=== PATIENT | male | born 2000 | race Caucasian/White ===

== ENCOUNTER 2024-06-01 20:50 | Emergency (ER) | payer OTHER, SELFPAY ==
[2024-06-01 20:52] VITALS: BP 125/78; PULSE 108; RESP 16; TEMP 36.6; O2SAT 98
[2024-06-01 22:58] VITALS: BP 125/76; PULSE 86; RESP 16; O2SAT 98
[2024-06-01] MEDS: SODIUM CHLORIDE 0.9% IV 1,000 ML 999 ML IV CONT (23:05)
--- NOTE | 2024-06-01 23:08 | ED_ITS ---
HPI - General Adult General Chief complaint: Nausea/Vomiting/Diarrhea Stated complaint: super dehydraed Time Seen by Provider: 06/01/24 22:48 History of Present Illness HPI narrative: Patient is a 23-year-old male who presents to the emergency department this evening complaining of nausea/vomiting/diarrhea which started this morning at 4:00 a.m.. Patient states that he felt warm and felt as though he was feverish but did not have a thermometer to check his fever. Denies any sick contacts at home or anyone with similar symptoms. Denies any abdominal pain, melena or hematochezia. Patient denies any chest pain, shortness of breath, cough or any additional URI symptoms. Denies any dysuria or hematuria. Denies any additional symptoms or concerns at this time. Related Data Allergies Allergy/AdvReac Type Severity Reaction Status Date / Time No Known Allergies Allergy Mild Unverified 10/31/08 00:34 Review of Systems 2 Review of Systems: All systems are reviewed and are negative unless stated otherwise in the HPI. Exam 2 Narrative: General: Alert, awake, afebrile, in no acute distress. HEENT: PERRL, no rhinorrhea, no post nasal drip, oropharynx clear. Neck: Trachea midline, no JVD, no lymphadenopathy. Cardiovascular: Regular rate and rhythm, no murmurs, rubs or gallops, no peripheral edema. Respiratory: Clear to auscultation bilaterally, no tachypnea, no wheezing, no rhonchi, no rubs, no respiratory distress. Abdomen: Soft, nontender, nondistended, no rebound, no guarding, no peritoneal signs. Musculoskeletal: No joint swelling or deformity, normal muscle tone. Skin: No rashes or petechia, no signs of infection. Psychiatric: Alert and oriented, normal behavior and judgment for situation. Neurological: Alert and oriented to person, place, and time. Follows all commands. No focal deficits, speech is clear and fluent. Course Vital Signs Vital signs: Vital Signs Temperature 97.9 F 06/01/24 20:52 Pulse Rate 108 H 06/01/24 20:52 Respiratory Rate 16 06/01/24 20:52 Blood Pressure 125/78 06/01/24 20:52 Pulse Oximetry 98 06/01/24 20:52 Oxygen Delivery Room Air 06/01/24 20:52 Temperature 97.9 F 06/01/24 20:52 Pulse Rate 86 06/01/24 22:58 Respiratory Rate 16 06/01/24 22:58 Blood Pressure 125/76 06/01/24 22:58 Pulse Oximetry 98 06/01/24 22:58 Oxygen Delivery Room Air 06/01/24 20:52 Medical Decision Making MDM Narrative Medical decision making narrative: The patient was evaluated by myself in the emergency department. History is obtained from patient who is an independent historian and physical exam was performed. External medical records were reviewed at this time. IV was established and pertinent tests were ordered. Patient was administered 1 L IV fluid bolus with normal saline and 4 mg of IV Zofran. Laboratory results obtained revealing no acute process. Differential diagnosis considerations include gastroenteritis, acute viral syndrome, dehydration, electrolyte derangements. Comorbidities impacting this visit include none. I have evaluated and discussed social determinants of health with the patient that could potentially impact subsequent diagnosis and treatment plans. On repeat assessment of the patient, reevaluation revealed that the patient is doing well and is in no acute distress. Patient symptoms have improved since he arrived to our emergency department. Repeat vital signs were all reviewed and noted to be stable. Differential diagnosis and treatment plan were discussed with the patient at bedside. Patient agrees with discussion and after shared medical decision making agrees with discharge. All questions were answered to the patient's satisfaction. Patient will follow up with his PCP in 3-5 days. Patient was provided with strict return precautions and instructed to return to the emergency department if any new or worsening symptoms develop. The patient was discharged in stable condition. Vital Signs Vital Signs: Vital Signs Temperature 97.9 F 06/01/24 20:52 Pulse Rate 108 H 06/01/24 20:52 Respiratory Rate 16 06/01/24 20:52 Blood Pressure 125/78 06/01/24 20:52 Pulse Oximetry 98 06/01/24 20:52 Oxygen Delivery Room Air 06/01/24 20:52 Temperature 97.9 F 06/01/24 20:52 Pulse Rate 86 06/01/24 22:58 Respiratory Rate 16 06/01/24 22:58 Blood Pressure 125/76 06/01/24 22:58 Pulse Oximetry 98 06/01/24 22:58 Oxygen Delivery Room Air 06/01/24 20:52 Lab Data 06/01/24 23:01 12/11/24 23:01 Labs: Lab Results 06/01/24 Range/Units 23:01 WBC 8.1 (4.5-10.0) K/mm3 RBC 5.30 (4.6-6.20) M/mm3 Hgb 17.6 (14.0-18.0) g/dL Hct 47.0 (42.0-52.0) % MCV 88.7 (80-100) fl MCH 33.2 (26-34) pg MCHC 37.4 H (32-36) g/dl RDW 13.0 (11.5-14.5) % Plt Count 213 (150-375) k/mm3 MPV 8.9 (7.4-10.4) fl Immature Gran % (Auto) 0.4 (0-0.5) % Neut % (Auto) 83.2 H (45.5-73.1) % Lymph % (Auto) 9.4 L (18.3-44.2) % [place] % (Auto) 6.8 (2.6-8.5) % Eos % (Auto) 0.0 (0-4.4) % Baso % (Auto) 0.2 (0.2-1.2) % Lymph # (Auto) 0.76 L (0.9-3.2) K/mm3 [place] # (Auto) 0.6 (0.1-0.6) K/mm3 Eos # (Auto) 0.0 (0-0.3) K/mm3 Baso # (Auto) 0.0 (0.0-0.1) K/mm3 Abs Immat Gran (auto) 0.03 (0.00-0.031) K/mm3 Absolute Neuts (auto) 6.8 H (1.3-6.7) K/mm3 Absolute Nucleated RBC 0.000 (0.0-0.012) K/mm3 Nucleated RBC % 0.0 (0.0-0.2) % Sodium 136 L (137-145) mmol/L Potassium 3.6 (3.4-5.0) mmol/L Chloride 102 (98-107) mmol/L Carbon Dioxide 30 (22-30) mmol/L Anion Gap 4 (4-12) mmol/L BUN 12 (9-20) mg/dL Creatinine 0.90 (0.7-1.3) mg/dL Estim Creat Clear Calc 107 ml/min Estimated GFR > 60 (59 - ) Glucose 106 (65-110) mg/dL Calcium 9.4 (8.4-10.2) mg/dL Magnesium 1.9 (1.6-2.3) mg/dL Total Bilirubin 1.7 H (0.2-1.3) mg/dL AST 23 (17-59) U/L ALT 36 (6-50) U/L Alkaline Phosphatase 41 (38-126) U/L Total Protein 7.0 (6.3-8.2) g/dL Albumin 4.7 (3.5-5.1) g/dL Lipase 22 L (23-300) U/L Influenza A (RT-PCR) Negative (Negative) Influenza B (RT-PCR) Negative (Negative) SARS-CoV-2 RNA (RT-PCR) Negative (Negative) Discharge Plan Discharge Clinical Impression: Gastroenteritis Patient Disposition: Home, Self-Care Condition: Improved Instructions: Antibiotic Form, Gastroenteritis (ED) Additional Instructions: Please follow-up with your family doctor within the next 3-5 days. Return to the ED if any new or worsening symptoms develop. Continue oral hydration by drinking lots of fluids until the diarrhea resolves. Patient Language: Romanian Follow-up/Referrals: UNKNOWN,DOCTOR [Non-Staff] - 1 Week Time of Disposition: 00:06
[2024-06-01] MEDS: ONDANSETRON INJ 4 MG/2 ML VIAL IV PUSH (23:19)
[2024-06-01 23:20] LABS: Alanine Aminotransferase 36 U/L (6-50); Albumin Level 4.7 g/dL (3.5-5.1); Alkaline Phosphatase 41 U/L (38-126); Anion Gap 4 mmol/L (4-12); Aspartate Amino Transferase 23 U/L (17-59); Bilirubin,Total 1.7 mg/dL (0.2-1.3); Blood Urea Nitrogen 12 mg/dL (9-20); Calcium 9.4 mg/dL (8.4-10.2); Carbon Dioxide 30 mmol/L (22-30); Chloride 102 mmol/L (98-107); Estimated CRCL calculation 107 ml/min; Estimated Glomerular Filt Rate > 60; Glucose 106 mg/dL (65-110); Lipase 22 U/L (23-300); Magnesium 1.9 mg/dL (1.6-2.3); Potassium 3.6 mmol/L (3.4-5.0); Sodium 136 mmol/L (137-145)
[2024-06-01 23:23] LABS: Basophils Percent Auto 0.2 % (0.2-1.2); Hemoglobin 17.6 g/dL (14.0-18.0); Immature Granulocyte Absolute 0.03 K/mm3 (0.00-0.031); Immature Granulocyte Percent A 0.4 % (0-0.5); Lymphocytes Absolute Auto 0.76 K/mm3 (0.9-3.2); Lymphocytes Percent Auto 9.4 % (18.3-44.2); Mean Corpuscular HGB Conc 37.4 g/dl (32-36); Mean Corpuscular Hemoglobin 33.2 pg (26-34); Mean Corpuscular Volume 88.7 fl (80-100); Mean Platelet Volume 8.9 fl (7.4-10.4); Monocytes Absolute Auto 0.6 K/mm3 (0.1-0.6); Monocytes Percent Auto 6.8 % (2.6-8.5); Neutrophils Absolute Auto 6.8 K/mm3 (1.3-6.7); Neutrophils Percent Auto 83.2 % (45.5-73.1); Platelet Count Result 213 k/mm3 (150-375); White Blood Count 8.1 K/mm3 (4.5-10.0)
[2024-06-01 23:43] LABS: Influenza A QL RT-PCR Negative (Negative); Influenza B QL RT-PCR Negative (Negative); SARS-CoV-2 RNA PCR Negative (Negative)
[2024-06-02 00:21] VITALS: BP 118/78; PULSE 76; RESP 15; O2SAT 97
[2024-06-02 00:22] LABS: Add Urine Microscopic? YES; Appearance Urine Cloudy (Clear); Bacteria Urine None Seen /hpf; Bilirubin Urine 1+ (Negative); Blood Urine Negative (Negative); Color Urine Dark Yellow (Yellow); Glucose Urine UA Negative (Negative); Ketones Urine Trace mg/dL (Negative); Leukocyte Esterase Ur Negative LEU/UL (Negative); Nitrate Urine Negative (Negative); Non Pathogenic Casts 0-2; Protein Urine Trace mg/dL (Negative); RBC Urine 0-2 /hpf (0-2); Specific Grav Ur 1.034 (1.001-1.035); Squamous Epithelial Cell Urine None Seen /hpf (Few); WBC Urine 0-5 /hpf (0-3)
== END 2024-06-02 00:43 | disposition home or self-care (01) ==
PROVIDERS: Emergency Provider Emergency Medicine
DX: K52.9 Noninfective gastroenteritis and colitis, unspecified (principal)
CPT/HCPCS: 36415; 80053; 81001; 83690; 83735; 85025; 87636; 96361; 96374; 99284; J2405; J7030

== ENCOUNTER 2024-08-15 08:11 | Emergency (ER) | payer OTHER, SELFPAY ==
--- NOTE | 2024-08-15 08:15 | ED_ITS ---
HPI - URI/Sore Throat General Chief Complaint: Upper Respiratory Infection Stated Complaint: Cough/Vomiting Time Seen by Provider: 08/15/24 08:15 Source: patient Mode of arrival: ambulatory Limitations: no limitations History of Present Illness HPI Narrative: Donald is a 24-year-old male patient presenting to the clinic today with complaints of cough, sore throat, loss of taste/smell, productive cough, fatigue, decreased appetite, body aches, and headache x3 days. He has felt feverish but has not been able to check his temperature. Denies any chest pain or shortness of breath. Denies any known sick contacts. MD elicited complaint: sore throat and nasal congestion Related Data Allergies Allergy/AdvReac Type Severity Reaction Status Date / Time No Known Allergies Allergy Mild Unverified 08/15/24 08:15 Review of Systems Review of Systems: Pertinent positives per HPI. Patient denies any fever, chills, rash, headache, visual changes, dizziness, cough, shortness of breath, chest pain, palpitations, nausea, vomiting, diarrhea, constipation, abdominal pain, or any urinary issues. PMFSH Comments At the time of my signature, I reviewed and agree with the nursing past medical, surgical, social, and family history. There is no relevant family history pertinent to the patient complaint. Exam Narrative: General: Well-developed, well nourished, in no apparent distress Head: Normocephalic, atraumatic Eyes: Pupils equally round and reactive to light bilaterally, EOM intact, sclera and conjunctive clear, no discharge, lids normal Ears: TMs intact and clear, ear canals clear, no drainage, grossly hearing normal. Nose: Nares patent, clear nasal discharge, no inflammation, no sinus tenderness. Mouth: Oral pharynx without lesions or masses, good dentition, MMM. Neck: Supple, trachea midline, no enlargement of anterior or posterior cervical nodes, no thyroid masses or goiter palpable. Cardio: Regular rate and rhythm, s1 and s2 normal, no murmur appreciated. Resp: Clear to auscultation bilaterally, no rhonchi, rales, wheezing or rubs Course Course Emergency Course: Portions of this record may have been created with voice recognition software. Level of Care: Express Care Visit Vital Signs Vital signs: Vital signs reviewed MDM - URI/Sore Throat MDM Narrative Medical decision making narrative: At the time of visit patient is resting comfortably on the exam table. Patient appears to be nontoxic. Labs: Influenza, strep, and COVID testing were performed. Strep and COVID testing were negative. We will send strep for culture. Influenza A test was positive Plan: Patient is positive for influenza A. Prescription for Zofran was sent over for nausea. Supportive measures were discussed with the patient and they voiced understanding discharge instructions and agrees to treatment plan. Return precautions reviewed Differential Diagnosis Differential diagnosis: Likely upper respiratory infection, otitis media, sinusitis, viral infection, bronchitis, influenza, pharyngitis and other (COVID) Discharge Plan Discharge Clinical Impression: Influenza A Patient Disposition: Home, Self-Care Condition: Stable Instructions: Antibiotic Form, Influenza (ED) Additional Instructions: COVID and strep test were negative in the clinic today. We will send strep for culture. Influenza A testing was positive. May take DayQuil/NyQuil for cold/flu symptoms Take prescription medications only as prescribed-Zofran Increase fluids and stay well hydrated Tylenol/motrin for pain/fever Flonase and OTC antihistamines as directed Vicks vapor rub to open sinuses Sinus rinses for congestion Cepacol spray, cough drops, throat lozenges, warm tea with honey/lemon, gargle salt water to soothe throat BRAT diet for diarrhea Clear liquids x 24 hours then advance as tolerated for nausea/vomiting Go to the ED if you develop a worsening in your condition- high fever not controlled by Tylenol or Motrin, dehydration, weakness, lethargy, shortness of breath, or chest pain. Follow up with your PCP in 3-5 days if symptoms persist. Patient Language: Palestinian Prescriptions: New ondansetron 4 mg tablet,disintegrating 4 mg PO Q6H PRN (Reason: nausea and vomiting) 3 Days Qty: 12 0RF Follow-up/Referrals: PHYSICIAN,INTENSIVE CARE NURSE [Primary Care Provider] - Stand Alone Forms: Work/School Release IP Time of Disposition: 08:23 Quality NIHSS Nursing Documentation ED NIHSS nursing documentation: reviewed/agree
[2024-08-15 08:25] LABS: EDINFLUASCREEN Positive (Negative); EDINFLUBSCREEN Negative (Negative)
[2024-08-15 08:29] LABS: EDCOVIDSCREEN Negative (Negative); EDSTREPNEGPOS1 Negative (Negative)
[2024-08-15 08:30] VITALS: BP 105/81; PULSE 86; RESP 18; TEMP 37.1; O2SAT 97
== END 2024-08-15 08:28 | disposition home or self-care (01) ==
PROVIDERS: Emergency Provider Nurse Practitioner Family
DX: J10.1 Influenza due to other identified influenza virus with other respiratory manifestations (principal); Z20.822 Contact with and (suspected) exposure to COVID-19
CPT/HCPCS: 87081; 87426; 87804; 87880; 99213; G0463